=== PATIENT | male | born 1960 | race American Indian/Alaskan Native ===

== ENCOUNTER 2022-04-09 10:30 | Outpatient (CLI) | payer BC | END 2022-04-09 10:31 | disposition home or self-care (01) | LOC: CSHRAD 10:30 | PROVIDERS: ATTEND Internal Medicine | DX: M79.645 Pain in left finger(s) (principal) ==

== ENCOUNTER 2025-02-28 16:08 | Outpatient (CLI) | payer BC | END 2025-02-28 16:09 | disposition home or self-care (01) | LOC: CSHCT 16:08 | PROVIDERS: ATTEND Internal Medicine Pulmonary Disease | DX: R91.8 Other nonspecific abnormal finding of lung field (principal) | CPT/HCPCS: 71250 ==